=== PATIENT | male | born 1955 | race Caucasian/White ===

== ENCOUNTER 2023-11-26 10:16 | Outpatient (CLI) | payer MEDICARE | END 2023-11-26 10:17 | disposition home or self-care (01) | LOC: BICRAD 10:16 | PROVIDERS: ATTEND Family Medicine | DX: R05.2 Subacute cough (principal) | CPT/HCPCS: 36415; 71046; 80048; 85025 ==

== ENCOUNTER 2024-09-02 15:12 | Outpatient (CLI) | payer MEDICARE | END 2024-09-02 15:13 | disposition home or self-care (01) | LOC: BICRAD 15:12 | PROVIDERS: ATTEND Nurse Practitioner Family | DX: R05.3 Chronic cough (principal) | CPT/HCPCS: 71046 ==